=== PATIENT | female | born 1950 | race Caucasian/White ===

== ENCOUNTER → 2018-10-30 | Day surgery (SDC) | payer MEDICARE, OTHER ==
[~2018-10-30] MED LIST: Lactated Ringers 1,000 ML IV SCH; Propofol 200 MG/20 ML SDV IV ONE
--- NOTE | 2018-10-30 13:49 | OR ---
DATE OF OPERATION: 10/30/2018 PREOPERATIVE DIAGNOSIS: SCREENING COLONOSCOPY. POSTOPERATIVE DIAGNOSIS: SCREENING COLONOSCOPY. SURGEON: Ricky Allison MD PROCEDURE: FULL-LENGTH COLONOSCOPY. ANESTHESIA: MAC via VAT PACKER. COMPLICATIONS: None. SPECIMEN: None. FINDINGS: Normal full-length colonoscopy. RECOMMENDATIONS: Follow up colonoscopy every 10 years. INDICATIONS: The patient was seen for a routine physical. Screening colonoscopy was ordered as it has been 10 years since her last one. DESCRIPTION OF PROCEDURE: The patient was prepped and draped, placed in the left lateral decubitus position. A lubricated Olympus colonoscope was inserted and easily advanced to the cecum. Direct visualization of the ileocecal valve and appendiceal orifice was accomplished. The bowel prep was adequate. Upon withdrawal of the scope, throughout the entire length of the colon, I could find no signs of polyps, mass, ulceration, or bleeding sites. No vascular abnormalities or signs of colitis. There were no diverticula. Retroflexion of the scope in the rectum showed no anal lesions. Air was suctioned, scope removed without complication. STEPHANY/SPIKE /[id number]
== END ==
LOC: CC.SDS 06:52
PROVIDERS: ATTEND Family Medicine
DX: Z12.11 Encounter for screening for malignant neoplasm of colon (principal); E78.5 Hyperlipidemia, unspecified; F32.9 Major depressive disorder, single episode, unspecified; F41.9 Anxiety disorder, unspecified; M85.80 Other specified disorders of bone density and structure, unspecified site; M19.90 Unspecified osteoarthritis, unspecified site; N95.1 Menopausal and female climacteric states; K21.9 Gastro-esophageal reflux disease without esophagitis; Z12.31 Encounter for screening mammogram for malignant neoplasm of breast; Z87.442 Personal history of urinary calculi
CPT/HCPCS: G0121; J2704; J7120

== ENCOUNTER → 2020-07-27 | Day surgery (SDC) | payer MEDICARE, OTHER ==
[~2020-07-27] MED LIST changes: +Acetaminophen/oxyCODONE 325-5 MG Tab PO PRN; -Lactated Ringers 1,000 ML IV SCH; +Morphine 4 MG/ML VIAL IV PRN; +Ondansetron 4 MG/2 ML SDV IVPUSH PRN; -Propofol 200 MG/20 ML SDV IV ONE; +Sodium Chloride 0.9% 10 ML Syringe FLUSH PRN; +ceFAZolin 1 GM Vial IVPUSH ONE
[2020-07-27] MEDS: Lactated Ringers 1,000 ML IV SCH ×2 (07:19→11:49)
--- NOTE | 2020-07-27 10:33 | OR ---
DATE OF OPERATION: 07/27/2020 PREOPERATIVE DIAGNOSIS: CHRONIC CHOLELITHIASIS, CHOLECYSTITIS. POSTOPERATIVE DIAGNOSIS: CHRONIC CHOLELITHIASIS, CHOLECYSTITIS. SURGEON: Kev Fuchs MD PROCEDURE: LAPAROSCOPIC CHOLECYSTECTOMY. ANESTHESIA: General. ESTIMATED BLOOD LOSS: Minimum. SPECIMEN: Gallbladder and stones. INDICATIONS: This 70-year-old female has symptomatic right upper quadrant abdominal pain and an ultrasound shows multiple stones. DESCRIPTION OF PROCEDURE: After adequate preparation, a right upper quadrant 5 mm incision was made and a Veress needle placed intra-abdominally for insufflation. A 5 mm trocar was then placed and a 5 mm laparoscope. Visualization of the lower abdomen where she had a midline scar did not show any intraabdominal adhesions. Three other trocars were then placed under direct vision. There were multiple adhesions of the omentum to the gallbladder. These were taken off by cautery dissection. The cystic triangle structures were then dissected free. They were triply clipped and divided. The gallbladder was taken off the liver bed using cautery dissection. Hemostasis was well controlled. There was no spillage of bile. The gallbladder was placed in a sterile retrieval bag and brought out through the epigastric trocar site by slightly dilating the fascia. The fascia was then reapproximated using a 0 Vicryl suture. The skin was closed with 4-0 Vicryl. The patient was taken to recovery room. ADEOLA/SPIKE /[id number]
--- NOTE | 2020-07-28 08:39 | PCM.SN.2 ---
- Free Text/Narrative Note: Stable POD #1. PO liquids good. Wounds clean and dry. Pain controlled. Ambulated OK. Can DC. Percocet #20 given for pain. No restrictions on activity or diet. FU my clinic in August if needed.
== END | disposition home or self-care (01) ==
LOC: CC.SDS 06:57
PROVIDERS: ATTEND Surgery
DX: K80.10 Calculus of gallbladder with chronic cholecystitis without obstruction (principal); E78.5 Hyperlipidemia, unspecified; M85.80 Other specified disorders of bone density and structure, unspecified site; Z79.899 Other long term (current) drug therapy; Z98.890 Other specified postprocedural states
CPT/HCPCS: 00790; 47562; 88304; A9270-GY; J0690; J7120